=== PATIENT | female | born 1970 | race Caucasian/White ===

== ENCOUNTER 2016-10-18 11:54 | Emergency (ER) | payer BC ==
[~2016-10-18] VITALS: Ht 165.1 cm; Wt 87.9 kg
[~2016-10-18 11:54] MED LIST: ALBUAER2 INH; IBUP-1427 PO; KLN5X PO; VENL100T2 PO
[2016-10-18 12:00] VITALS: TEMP 36.6; Ht 165.1 cm; Wt 87.9 kg
[2016-10-18] MEDS ORDERED: VNTHFA/IN INH (12:12)
[2016-10-18] MEDS ORDERED: MoRPHine SULFATE 4 MG/ML 1 ML CARP\\VIAL IV STA ×2 (12:13→13:30)
[2016-10-18] MEDS ORDERED: ONDANSETRON INJ 2 MG/ML 2 ML VIAL IV STA (12:13)
[2016-10-18] MEDS ORDERED: SODIUM CHLORIDE 0.9% 1000ML 1,000 ML IV STA (12:13)
--- NOTE | 2016-10-18 12:26 | EMERGENCY ROOM VISIT NOTE ---
History First contact with patient: 12:04 Chief Complaint: ABDOMINAL PAIN Stated Complaint: ABDOMINAL PAIN Nursing Triage Summary: RLQ abd pain with nausea, started last evening. History of Present Illness The patient is a 46 year old female who presents to the Emergency Room with complaints of abdominal pain. The patient states that her pain started last night. She states that she was walking and may have felt a pulling sensation in the lower abdomen. She states the pain has persisted and worsened since then. She rates her discomfort an 8/10. She states she thought she felt a lump in her abdomen. She denies any fever. She denies any earache, sore throat , cough. She denies any pain in her chest or trouble breathing. She denies any vomiting. She denies any urinary symptoms. The patient has had hysterectomy and oophorectomy in the past. Review of Systems A 10 system review of systems was completed with positives and pertinent negatives listed in the HPI. Past Medical/Surgical History Medical Problems: (1) Asthma (2) Kidney stone (3) Migraine (4) Parathyroid tumor Surgical Problems: (1) H/O: hysterectomy Anxiety Family History Kidney disease or stones Social History Smoking Status: Never Smoker Alcohol Use: none Marital Status: Housing Status: lives with family Occupation Status: employed Current/Historical Medications Scheduled Albuterol Hfa (Ventolin Hfa), 2 PUFFS INH QID Ciprofloxacin Hcl (Cipro), 500 MG PO BID Metronidazole (Flagyl), 500 MG PO TID Ondasetron Odt (Zofran Odt), 4 MG SL Q6H Scheduled PRN Clonazepam (Clonazepam), 0.5 MG PO BID PRN for Panic Attack Hydrocodone/Acetaminophen 5MG/325MG ([place] 5MG/325MG), 1-2 TABLET PO Q4H PRN for Pain Venlafaxine Hcl (Effexor), 100 MG PO BID PRN for depression Allergies Coded Allergies: Metoclopramide (Verified Adverse Reaction, Mild, PT BECOMES VERY NERVOUS, 04/28/16) Physical Exam Vital Signs Date Time Temp Pulse Resp B/P Pulse Ox O2 Delivery O2 Flow Rate FiO2 10/18/16 15:29 86 18 109/80 96 10/18/16 13:36 115 18 113/74 97 Room Air 10/18/16 12:00 36.6 97 18 117/71 99 Room Air Physical Exam VITALS: Vitals are noted on the nurse's note and reviewed by myself. Vital signs stable. The patient is afebrile. She is not tachycardic, tachypneic or hypoxic. GENERAL: This is a 46-year-old female, in no acute distress, nondiaphoretic, well-developed well-nourished. SKIN: The skin was without rashes, erythema, edema, or bruising. There is no tenting of the skin. Capillary reflex less than 2 seconds. HEAD: Normocephalic atraumatic. EARS: The external ears are normal in appearance. EYES: Pupils equal round and reactive to light and accommodation. Conjunctivae without injection, sclerae without icterus. Extraocular movements intact. NOSE: Patent, turbinates without inflammation or discharge. No sinus tenderness. MOUTH: Mucous membranes moist. Tonsils are not enlarged. Pharynx without erythema or exudate. Uvula midline. Airway patent. Tongue does not deviate. NECK: Supple without nuchal rigidity. No JVD. HEART: Regular rate and rhythm without murmurs gallops or rubs. LUNGS: Clear to auscultation bilaterally without wheezes, rales or rhonchi. No retractions or accessory muscle use. ABDOMEN: Positive bowel sounds x 4. Soft, moderate lower abdominal tenderness, marked right lower quadrant tenderness, without masses or organomegaly. There are no palpable abnormalities on exam. MUSCULOSKELETAL: No muscle atrophy, erythema, or edema noted. Full range of motion in all extremities. Normal gait. Strength 5/5 throughout. NEURO: Patient was alert and oriented to person place and time. No focal neurological deficits. Medical Decision & Procedures ER Provider Diagnostic Interpretation: [~ rep ct add3]] CT SCAN OF THE ABDOMEN AND PELVIS WITH IV CONTRAST CLINICAL HISTORY: Right lower quadrant abdominal pain. COMPARISON STUDY: Abdominal CT dated 01/08/2014. TECHNIQUE: Following the IV administration of 119 cc of Optiray 320, CT scan of the abdomen and pelvis is performed from the lung bases to the proximal femora. Images are reviewed in the axial, sagittal, and coronal planes. IV contrast was administered without complication. Automated dose control exposure was utilized. CT DOSE: 579.77 mGy.cm FINDINGS: Lung bases: The heart is top normal in size and without pericardial effusion. The lung bases are clear. Liver: The contrast-enhanced liver is enlarged, measuring 19 cm in length. The liver demonstrates diffusely diminished attenuation consistent with hepatic steatosis. There is no intrahepatic biliary ductal dilatation. The hepatic veins and portal veins are patent. Gallbladder: Unremarkable. Spleen: Normal in size and attenuation. Pancreas: Unremarkable. Adrenal glands: Unremarkable. Kidneys: The contrast enhanced kidneys are normal in size and without hydronephrosis. The kidneys enhance symmetrically. Scattered subcentimeter cortical hypodensities likely represent cysts but are too small for definitive characterization. There is an indeterminant 7 mm lesion in the interpolar left kidney which appears to demonstrate contrast enhancement. This is best seen on image #128. Abdominal vasculature: The abdominal aorta is normal in course and caliber. Bowel: The small bowel and colon are normal in course and caliber. There is moderate colonic fecal retention. There is inflammation and trace fluid seen adjacent to the ascending colon in the right lower quadrant on axial image #252. There is no associated colonic wall thickening or diverticular disease in the right colon. This process is remote from the appendix which is well-visualized and normal. Peritoneum: There is no intraperitoneal free air or abdominal ascites. There is a small fat-containing umbilical hernia. Lymphadenopathy: None. Pelvic viscera: The bladder is normal in appearance. The uterus is surgically absent. No adnexal lesion is seen. Skeletal structures: No lytic or blastic lesions are seen. A large hemangioma is noted in the body of T12. IMPRESSION: 1. There is a mild inflammatory process identified adjacent to the ascending colon in the right lower quadrant as detailed above. There is no associated colonic wall thickening or regional diverticulitis is identified. The appearance suggests epiploic appendagitis or possibly an omental infarct. Diverticulitis of the right colon is considered less likely. This process is remote from the appendix which is normal. 2. Moderate colonic fecal retention. 3. Hepatomegaly and hepatic steatosis. 4. There is a 7 mm indeterminant lesion in the interpolar left kidney which appears to demonstrate postcontrast enhancement. This is difficult to assess due to small size. Follow-up with a nonemergent contrast-enhanced renal protocol MRI is recommended for further assessment. 5. Additional findings as above. Laboratory Results 10/18/16 12:25 Red Blood Count 4.57, Mean Corpuscular Volume 92.8, Mean Corpuscular Hemoglobin 30.6, Mean Corpuscular Hemoglobin Concent 33.0, Mean Platelet Volume 9.6, Neutrophils (%) (Auto) 63.6, Lymphocytes (%) (Auto) 25.0, Monocytes (%) (Auto) 8.4, Eosinophils (%) (Auto) 2.2, Basophils (%) (Auto) 0.6, Neutrophils # (Auto) 6.23, Lymphocytes # (Auto) 2.45, Monocytes # (Auto) 0.82, Eosinophils # (Auto) 0.22, Basophils # (Auto) 0.06 10/18/16 12:25 Test 10/18/16 12:20 10/18/16 12:25 Urine Color YELLOW Urine Appearance CLEAR (CLEAR) Urine pH 8.5 (4.5-7.5) Urine Specific Ashley 1.016 (1.000-1.030) Urine Protein NEG (NEG) Urine Glucose (UA) NEG (NEG) Urine Ketones NEG (NEG) Urine Occult Blood NEG (NEG) Urine Nitrite NEG (NEG) Urine Bilirubin NEG (NEG) Urine Urobilinogen NEG (NEG) Urine Leukocyte Esterase SMALL (NEG) Urine WBC (Auto) 10-30 /hpf (0-5) Urine RBC (Auto) 5-10 /hpf (0-4) Urine Hyaline Casts (Auto) 1-5 /lpf (0-5) Urine Epithelial Cells (Auto) 20-30 /lpf (0-5) Urine Bacteria (Auto) NEG (NEG) White Blood Count 9.80 K/uL (4.8-10.8) Red Blood Count 4.57 M/uL (4.2-5.4) Hemoglobin 14.0 g/dL (12.0-16.0) Hematocrit 42.4 % (37-47) Mean Corpuscular Volume 92.8 fL (80-100) Mean Corpuscular Hemoglobin 30.6 pg (25-34) Mean Corpuscular Hemoglobin Concent 33.0 g/dl (32-36) Platelet Count 314 K/uL (130-400) Mean Platelet Volume 9.6 fL (7.4-10.4) Neutrophils (%) (Auto) 63.6 % Lymphocytes (%) (Auto) 25.0 % Monocytes (%) (Auto) 8.4 % Eosinophils (%) (Auto) 2.2 % Basophils (%) (Auto) 0.6 % Neutrophils # (Auto) 6.23 K/uL (1.4-6.5) Lymphocytes # (Auto) 2.45 K/uL (1.2-3.4) Monocytes # (Auto) 0.82 K/uL (0.11-0.59) Eosinophils # (Auto) 0.22 K/uL (0-0.5) Basophils # (Auto) 0.06 K/uL (0-0.2) RDW Standard Deviation 43.2 fL (36.4-46.3) RDW Coefficient of Variation 12.7 % (11.5-14.5) Immature Granulocyte % (Auto) 0.2 % Immature Granulocyte # (Auto) 0.02 K/uL (0.00-0.02) Anion Gap 5.0 mmol/L (3-11) Est Creatinine Clear Calc Drug Dose 94.7 ml/min Estimated GFR () 99.4 Estimated GFR (Non- 85.8 BUN/Creatinine Ratio 8.5 (10-20) Calcium Level 9.0 mg/dl (8.5-10.1) Total Bilirubin 0.4 mg/dl (0.2-1) Aspartate Amino Transf (AST/SGOT) 22 U/L (15-37) Alanine Aminotransferase (ALT/SGPT) 22 U/L (12-78) Alkaline Phosphatase 133 U/L (45-117) Total Protein 7.8 gm/dl (6.4-8.2) Albumin 4.1 gm/dl (3.4-5.0) Globulin 3.7 gm/dl (2.5-4.0) Albumin/Globulin Ratio 1.1 (0.9-2) Lipase 122 U/L (73-393) Medications Administered Medications (Trade) Dose Ordered Sig/Bibi Route Start Time Stop Time Status Last Admin Dose Admin Sodium Chloride (Nss 1000ml) 1,000 ml @ 999 mls/hr Q1H1M STAT IV 10/18/16 12:13 10/18/16 13:13 DC 10/18/16 12:30 999 MLS/HR Ondansetron HCl (Zofran Inj) 4 mg NOW STAT IV 10/18/16 12:13 10/18/16 12:16 DC 10/18/16 12:30 4 MG Morphine Sulfate (MoRPHine SULFATE INJ) 4 mg NOW STAT IV 10/18/16 12:13 10/18/16 12:17 DC 10/18/16 12:31 4 MG Morphine Sulfate (MoRPHine SULFATE INJ) 4 mg NOW STAT IV 10/18/16 13:30 10/18/16 13:31 DC 10/18/16 13:30 4 MG Hydromorphone HCl (Dilaudid Inj) 1 mg NOW STAT IV 10/18/16 14:13 10/18/16 14:15 DC 10/18/16 14:54 1 MG Procedure The patient was monitored on a electrotype caster. They maintained a normal sinus rhythm without ectopy. ED Course The patient was seen and examined. Previous visits were reviewed. The patient does not have a fever or leukocytosis. She does not have any significant electrolyte abnormalities. Lipase is not elevated. Urinalysis suggests contamination and a culture is pending. CT scan of the abdomen and pelvis was obtained as above There is question of epiploic appendagitis. Right-sided diverticulitis is considered less likely. There is also a renal lesion as above. The patient was advised of this and follow with her family doctor for outpatient imaging studies. The patient was hydrated with normal saline She was given 4 mg IV Zofran and 4 mg IV morphine with no significant improvement in her pain She was given additional 4 mg IV Zofran but her pain returned She was then given 1 mg IV Dilaudid The patient appears to have epiploic appendagitis but right-sided diverticulitis is considered less likely on imaging. The patient will be covered for diverticulitis with Cipro and Flagyl. She'll be given a prescription for Zofran and [place]. She should return with any worsening symptoms. Otherwise, she should follow-up with her family doctor in 2-3 days. The case was discussed with Dr. Peterson who agrees with the assessment and she knew plan. Medical Decision DIFFERENTIAL DIAGNOSIS: Hepatitis, cholecystitis, cholangitis, biliary colic, pancreatitis, pneumonia, subdiaphragmatic abscess, appendicitis, inguinal hernia , nephrolithiasis, inflammatory bowel disease, mesenteric adenitis, peptic ulcer disease, GERD, gastritis, pancreatitis, gastroenteritis, bowel obstruction , splenic infarct, diverticulitis, mesenteric ischemia, metabolic, peritonitis , among others. [place] Drug Monitoring Program Search Results: patient reviewed within database, no issues identified Impression Primary Impression: Epiploic appendagitis Departure Information Dispostion Home / Self-Care Condition GOOD Prescriptions Ondasetron Odt (ZOFRAN ODT) 4 Mg Tab 4 MG SL Q6H for Nausea, #10 TAB Prov: Beba Garcia PA-C 10/18/16 Hydrocodone/Acetaminophen 5MG/325MG ([place] 5MG/325MG) Tab 1-2 TABLET PO Q4H Y for Pain, #20 TAB For Initial Treatment Prov: Beba Garcia PA-C 10/18/16 Ciprofloxacin Hcl (CIPRO) 500 Mg Tab 500 MG PO BID for 7 Days, #14 TAB Prov: Beba Garcia PA-C 10/18/16 Metronidazole (Flagyl) 500 Mg Tab 500 MG PO TID for 7 Days, #21 TAB Prov: Beba Garcia PA-C 10/18/16 Referrals Trinidad Key D.O. (PCP) Patient Instructions [facility] Additional Instructions Cipro and Flagyl as prescribed, until finished to cover for possible right- sided diverticulitis. Do not drink alcohol while taking Flagyl as it may cause projectile vomiting. Zofran as prescribed, as needed for nausea and vomiting [place] 1-2 tablet every 6 hours if needed for worse pain. Do not drink or drive while taking [place] and do not take with Tylenol. Return to the emergency department for further evaluation and management if symptoms persist or worsen over the next 24-48 hours Otherwise, follow up with your family doctor. Call them for a follow-up appointment. There is possible cyst in your kidney and a lesion in the left kidney measuring approximately 7 mm. A nonemergent outpatient renal MRI is recommended and can be ordered by your family doctor.
[2016-10-18 12:38] LABS: BASO % 0.6 %; BASO ABS # 0.06 K/uL (0-0.2); COMPLETE YES; EOS % 2.2 %; HEMATOCRIT 42.4 % (37-47); IG% 0.2 %; LYMPH ABS # 2.45 K/uL (1.2-3.4); MEAN CELL VOLUME 92.8 fL (80-100); MEAN CORPUSCULAR HEMOGLOBIN 30.6 pg (25-34); MEAN PLATELET VOLUME 9.6 fL (7.4-10.4); MONO % 8.4 %; NEUT % 63.6 %; PLATELET COUNT 314 K/uL (130-400); RED BLOOD COUNT 4.57 M/uL (4.2-5.4)
[2016-10-18 12:48] LABS: URINE APPEARANCE CLEAR (CLEAR); URINE BILIRUBIN NEG (NEG); URINE COLOR YELLOW; URINE EPITHELIAL CELL AUTO 20-30 /lpf (0-5); URINE NITRITE NEG (NEG); URINE PH 8.5 (4.5-7.5); URINE SPECIFIC GRAVITY 1.016 (1.000-1.030); UROBILINOGEN NEG (NEG); ZZUR CULT IF INDIC CLEAN CATCH YES
[2016-10-18 12:52] LABS: MANUAL MICROSCOPIC REQUIRED? NO; REVIEW REQ? NO
[2016-10-18 12:58] LABS: ALB/GLOB RATIO 1.1 (0.9-2); BUN/CREATININE RATIO 8.5 (10-20); CREATININE 0.83 mg/dl (0.60-1.20)
[2016-10-18] MEDS ORDERED: OPTIRAY 320 IV PRN (13:30)
--- NOTE | 2016-10-18 13:45 | DIAGNOSTIC IMAGING REPORT ---
CT SCAN OF THE ABDOMEN AND PELVIS WITH IV CONTRAST CLINICAL HISTORY: Right lower quadrant abdominal pain. COMPARISON STUDY: Abdominal CT dated 01/08/2014. TECHNIQUE: Following the IV administration of 119 cc of Optiray 320, CT scan of the abdomen and pelvis is performed from the lung bases to the proximal femora. Images are reviewed in the axial, sagittal, and coronal planes. IV contrast was administered without complication. Automated dose control exposure was utilized. CT DOSE: 579.77 mGy.cm FINDINGS: Lung bases: The heart is top normal in size and without pericardial effusion. The lung bases are clear. Liver: The contrast-enhanced liver is enlarged, measuring 19 cm in length. The liver demonstrates diffusely diminished attenuation consistent with hepatic steatosis. There is no intrahepatic biliary ductal dilatation. The hepatic veins and portal veins are patent. Gallbladder: Unremarkable. Spleen: Normal in size and attenuation. Pancreas: Unremarkable. Adrenal glands: Unremarkable. Kidneys: The contrast enhanced kidneys are normal in size and without hydronephrosis. The kidneys enhance symmetrically. Scattered subcentimeter cortical hypodensities likely represent cysts but are too small for definitive characterization. There is an indeterminant 7 mm lesion in the interpolar left kidney which appears to demonstrate contrast enhancement. This is best seen on image #128. Abdominal vasculature: The abdominal aorta is normal in course and caliber. Bowel: The small bowel and colon are normal in course and caliber. There is moderate colonic fecal retention. There is inflammation and trace fluid seen adjacent to the ascending colon in the right lower quadrant on axial image #252. There is no associated colonic wall thickening or diverticular disease in the right colon. This process is remote from the appendix which is well-visualized and normal. Peritoneum: There is no intraperitoneal free air or abdominal ascites. There is a small fat-containing umbilical hernia. Lymphadenopathy: None. Pelvic viscera: The bladder is normal in appearance. The uterus is surgically absent. No adnexal lesion is seen. Skeletal structures: No lytic or blastic lesions are seen. A large hemangioma is noted in the body of T12. IMPRESSION: 1. There is a mild inflammatory process identified adjacent to the ascending colon in the right lower quadrant as detailed above. There is no associated colonic wall thickening or regional diverticulitis is identified. The appearance suggests epiploic appendagitis or possibly an omental infarct. Diverticulitis of the right colon is considered less likely. This process is remote from the appendix which is normal. 2. Moderate colonic fecal retention. 3. Hepatomegaly and hepatic steatosis. 4. There is a 7 mm indeterminant lesion in the interpolar left kidney which appears to demonstrate postcontrast enhancement. This is difficult to assess due to small size. Follow-up with a nonemergent contrast-enhanced renal protocol MRI is recommended for further assessment. 5. Additional findings as above. Electronically signed by: Pedro Monteiro M.D. 10/18/2016 1:44 PM Dictated Date/Time: 10/18/2016 1:28 PM
[2016-10-18] MEDS ORDERED: HYDROmorphone INJ 1 MG/ML SYR IV STA (14:13)
[2016-10-18] MEDS ORDERED: CIPR-255 PO (14:21)
[2016-10-18] MEDS ORDERED: HYDR-5688 PO (14:21)
[2016-10-18] MEDS ORDERED: ONDA4TAB10 SL (14:21)
[2016-10-18] MEDS ORDERED: METR-163 PO (14:21)
[2016-10-18 15:29] VITALS: BP 109/80; PULSE 86; O2SAT 96
[2016-10-24] MEDS ORDERED: MRLP17 PO (08:31)
[2016-10-24] MEDS ORDERED: ACET-749 PO (08:31)
== END 2016-10-18 15:31 | disposition home or self-care (01) ==
LOC: C.EDB 11:56
DX: K63.89 Other specified diseases of intestine (principal); Q43.8 Other specified congenital malformations of intestine; Z90.710 Acquired absence of both cervix and uterus; J45.909 Unspecified asthma, uncomplicated; Z87.442 Personal history of urinary calculi; D44.2 Neoplasm of uncertain behavior of parathyroid gland; Z84.1 Family history of disorders of kidney and ureter

== ENCOUNTER 2016-10-21 19:44 | Inpatient (IN) | payer BC ==
[~2016-10-21] VITALS: Ht 167.6 cm; Wt 89.0 kg
[~2016-10-21 19:44] MED LIST changes: -ALBUAER2 INH; +CIPR-255 PO; +HYDR-5688 PO; -IBUP-1427 PO; +METR-163 PO; +ONDA4TAB10 SL; +VNTHFA/IN INH
[2016-10-21] MEDS ORDERED: SODIUM CHLORIDE 0.9% 1000ML 1,000 ML IV STA (20:24)
[2016-10-21] MEDS ORDERED: HYDROmorphone INJ 1 MG/ML SYR IV STA ×2 (20:24→22:12)
[2016-10-21] MEDS ORDERED: ONDANSETRON INJ 2 MG/ML 2 ML VIAL IV STA ×2 (20:24→23:20)
--- NOTE | 2016-10-21 20:29 | EMERGENCY ROOM VISIT NOTE ---
History Report prepared by Fletcher: Cory Rice Under the Supervision of: Dr. Srikanth Call M.D. First contact with patient: 20:19 Chief Complaint: CHEST PAIN Stated Complaint: PAIN IN CHEST, HARD TO BREATHE, INCREASED SX Nursing Triage Summary: Triage Notes: Patient seen here and states "they told me I had something with fat twisted in my colon". Patient reports right sided abdominal pain that has got worse. Patient also reports feeling nauseous and pain in her chest. Doesn't feel she can move air. History of Present Illness The patient is a 46 year old female who presents to the Emergency Room with complaints of worsening right sided abdominal pain for the past 4 days. She rates her discomfort as a 9/10 and states the pain radiates to her back. The patient also complains of nausea, vomiting, chills, a fever, edema to her fingers, and diaphoresis. She has a history of a hysterectomy and kidney calculi. The patient denies any rashes. She was seen here in the ED 4 days ago for similar pain and was discharged home with epiploic appendagitis and prescribed antibiotics, Zofran and [place] for her pain. She states the [place] has not provided any pain relief. Source of History: patient Onset: past few days Position: abdomen (right sided abdomen) Symptom Intensity: 9/10 Timing: worsening Modifying Factors (Relieving): narcotics ([place]) Associated Symptoms: + abdominal pain, + back pain, + chills, + diaphoresis , + fevers, + nausea, + vomiting, No rash Note: The patient admits to edema of the fingers. Review of Systems See HPI for pertinent positives & negatives. A total of 10 systems reviewed and were otherwise negative. Past Medical & Surgical Medical Problems: (1) Asthma (2) Chest pain (3) Kidney stone (4) Migraine (5) Parathyroid tumor Surgical Problems: (1) H/O: hysterectomy Family History Kidney disease or stones Social History Smoking Status: Never Smoker Alcohol Use: none Drug Use: none Marital Status: Housing Status: lives with family Occupation Status: employed Current/Historical Medications Scheduled Albuterol Hfa (Ventolin Hfa), 2 PUFFS INH QID Ciprofloxacin Hcl (Cipro), 500 MG PO BID Metronidazole (Flagyl), 500 MG PO TID Ondasetron Odt (Zofran Odt), 4 MG SL Q6H Scheduled PRN Clonazepam (Clonazepam), 0.5 MG PO BID PRN for Panic Attack Hydrocodone/Acetaminophen 5MG/325MG ([place] 5MG/325MG), 1-2 TABLET PO Q4H PRN for Pain Venlafaxine Hcl (Effexor), 100 MG PO BID PRN for depression Allergies Coded Allergies: Metoclopramide (Verified Adverse Reaction, Mild, PT BECOMES VERY NERVOUS, 10/21/16) Physical Exam Vital Signs Date Time Temp Pulse Resp B/P Pulse Ox O2 Delivery O2 Flow Rate FiO2 10/21/16 22:54 100 Nasal Cannula 2.0 10/21/16 22:19 83 15 99 10/21/16 22:05 101/77 10/21/16 21:19 77 13 100 10/21/16 21:14 78 15 98 10/21/16 21:01 110/63 10/21/16 20:59 72 10/21/16 20:49 78 18 104/66 99 Room Air 10/21/16 20:47 104/66 10/21/16 20:00 98 Room Air 10/21/16 20:00 98 Room Air 10/21/16 19:49 36.6 86 18 111/67 98 Room Air Physical Exam GENERAL: Patient is anxious appearing and in moderate distress. HEENT: No acute trauma, normocephalic atraumatic, mucous membranes moist, no nasal congestion, no scleral icterus. NECK: No stridor, no adenopathy, no meningismus, trachea is midline. LUNGS: No dyspnea. Clear to auscultation and equal bilaterally. No wheeze, no rhonchi. HEART: Regular rate and rhythm. No murmurs, rubs, gallops appreciated. ABDOMEN: Vague right lower quadrant tenderness to palpation. Abdomen is otherwise soft, bowel sounds positive, no masses appreciated, no peritonitis. BACK: No midline tenderness, no CVA tenderness EXTREMITIES: Normal motion all extremities, no cyanosis, no edema. NEUROLOGIC: Alert and oriented, no acute motor or sensory deficits, no focal weakness, cranial nerves grossly intact. SKIN: No rash, no jaundice, no diaphoresis. Medical Decision & Procedures ER Provider Diagnostic Interpretation: These X-Rays were reviewed and interpreted by myself and the radiologist. CHEST ONE VIEW PORTABLE IMPRESSION: No acute process. Electronically signed by: John Oden M.D. 10/21/2016 9:09 PM ABDOMEN 2 VIEWS IMPRESSION: No evidence for bowel obstruction. Large amount of well-formed stool seen throughout the colon. Electronically signed by: John Oden M.D. 10/21/2016 10:01 PM Laboratory Results 10/21/16 20:00 Red Blood Count 4.67, Mean Corpuscular Volume 91.4, Mean Corpuscular Hemoglobin 30.0, Mean Corpuscular Hemoglobin Concent 32.8, Mean Platelet Volume 9.4, Neutrophils (%) (Auto) 61.1, Lymphocytes (%) (Auto) 27.9, Monocytes (%) (Auto) 8.3, Eosinophils (%) (Auto) 1.8, Basophils (%) (Auto) 0.6, Neutrophils # (Auto) 4.35, Lymphocytes # (Auto) 1.99, Monocytes # (Auto) 0.59, Eosinophils # (Auto) 0.13, Basophils # (Auto) 0.04 10/21/16 20:00 Test 10/21/16 20:00 10/21/16 20:45 White Blood Count 7.12 K/uL (4.8-10.8) Red Blood Count 4.67 M/uL (4.2-5.4) Hemoglobin 14.0 g/dL (12.0-16.0) Hematocrit 42.7 % (37-47) Mean Corpuscular Volume 91.4 fL (80-100) Mean Corpuscular Hemoglobin 30.0 pg (25-34) Mean Corpuscular Hemoglobin Concent 32.8 g/dl (32-36) Platelet Count 314 K/uL (130-400) Mean Platelet Volume 9.4 fL (7.4-10.4) Neutrophils (%) (Auto) 61.1 % Lymphocytes (%) (Auto) 27.9 % Monocytes (%) (Auto) 8.3 % Eosinophils (%) (Auto) 1.8 % Basophils (%) (Auto) 0.6 % Neutrophils # (Auto) 4.35 K/uL (1.4-6.5) Lymphocytes # (Auto) 1.99 K/uL (1.2-3.4) Monocytes # (Auto) 0.59 K/uL (0.11-0.59) Eosinophils # (Auto) 0.13 K/uL (0-0.5) Basophils # (Auto) 0.04 K/uL (0-0.2) RDW Standard Deviation 42.3 fL (36.4-46.3) RDW Coefficient of Variation 12.7 % (11.5-14.5) Immature Granulocyte % (Auto) 0.3 % Immature Granulocyte # (Auto) 0.02 K/uL (0.00-0.02) Activated Partial Thromboplast Time 24.9 SECONDS (21.0-31.0) Partial Thromboplastin Ratio 1.0 Anion Gap 8.0 mmol/L (3-11) Est Creatinine Clear Calc Drug Dose 80.1 ml/min Estimated GFR () 79.4 Estimated GFR (Non- 68.5 BUN/Creatinine Ratio 7.7 (10-20) Calcium Level 9.0 mg/dl (8.5-10.1) Magnesium Level 2.0 mg/dl (1.8-2.4) Total Bilirubin 0.3 mg/dl (0.2-1) Direct Bilirubin < 0.1 mg/dl (0-0.2) Aspartate Amino Transf (AST/SGOT) 19 U/L (15-37) Alanine Aminotransferase (ALT/SGPT) 23 U/L (12-78) Alkaline Phosphatase 117 U/L (45-117) Troponin I < 0.015 ng/ml (0-0.045) C-Reactive Protein 0.33 mg/dl (0-0.29) Total Protein 7.2 gm/dl (6.4-8.2) Albumin 3.6 gm/dl (3.4-5.0) Lipase 110 U/L (73-393) Urine Color YELLOW Urine Appearance CLEAR (CLEAR) Urine pH >= 9.0 (4.5-7.5) Urine Specific [place] 1.016 (1.000-1.030) Urine Protein NEG (NEG) Urine Glucose (UA) NEG (NEG) Urine Ketones NEG (NEG) Urine Occult Blood NEG (NEG) Urine Nitrite NEG (NEG) Urine Bilirubin NEG (NEG) Urine Urobilinogen NEG (NEG) Urine Leukocyte Esterase NEG (NEG) Urine WBC (Auto) 1-5 /hpf (0-5) Urine RBC (Auto) 0-4 /hpf (0-4) Urine Hyaline Casts (Auto) 0 /lpf (0-5) Urine Epithelial Cells (Auto) 5-10 /lpf (0-5) Urine Bacteria (Auto) NEG (NEG) Laboratory results as reviewed by me. Medications Administered Medications (Trade) Dose Ordered Sig/Bibi Route Start Time Stop Time Status Last Admin Dose Admin Hydromorphone HCl (Dilaudid Inj) 1 mg NOW STAT IV 10/21/16 20:24 10/21/16 20:26 DC 10/21/16 20:44 1 MG Ondansetron HCl 4 mg 4 mg NOW STAT IV 10/21/16 20:24 10/21/16 20:26 DC 10/21/16 20:43 4 MG Sodium Chloride (Nss 1000ml) 1,000 ml @ 999 mls/hr Q1H1M STAT IV 10/21/16 20:24 10/21/16 21:24 DC 10/21/16 20:42 999 MLS/HR Lorazepam (Ativan Inj) 1 mg NOW STAT IV 10/21/16 21:28 10/21/16 21:30 DC 10/21/16 21:58 1 MG Hydromorphone HCl (Dilaudid Inj) 0.5 mg NOW STAT IV 10/21/16 21:28 10/21/16 21:30 DC 10/21/16 22:02 0.5 MG Hydromorphone HCl (Dilaudid Inj) 1 mg NOW STAT IV 10/21/16 22:12 10/21/16 22:14 DC 10/21/16 23:18 1 MG Ondansetron HCl (Zofran Inj) 4 mg NOW STAT IV 10/21/16 23:20 10/21/16 23:21 DC 10/21/16 23:27 4 MG ECG Indication: abdominal pain Rate (beats per minute): 74 Rhythm: normal sinus Findings: no acute ischemic change, no ectopy ED Course 2009: The patient was evaluated in room B11B. A complete history and physical exam was performed. 2023: Sodium Chloride 1000 ml @ 999 mls/hr IV, Zofran Injection 4 mg IV, Dilaudid Inject 1 mg IV. 2127: The patient is feeling better, but wants more pain medication and medication for anxiety. She notes she does not think she has had a bowel movement in the last few days, but she can not remember. 2128: Dilaudid Injection 0.5 mg IV, Ativan Injection 1 mg IV. 2130: I have ordered a series of abdominal x-rays. 2204: I reevaluated the patient. She states her pain is increasing and she does not feel comfortable going home. I will contact the hospital medicine team. 2211: Dilaudid 1 mg IV. 2218: I discussed the patients case with Teofilo Rodarte [facility]. The patient will be further evaluated. 2320: Nursing informed me the patient would like more medicine for nausea. I will put in orders. 232: Zofran Injection 4 mg IV. Medical Decision Differential: Appendicitis, , MSK, Diverticulitis, UTI, Renal Colic, Bowel Obstruction, Aortic Pathology, amongst other pathologies entertained. 46 yr old female arrives with complaint of RLQ abdominal pain. Recent diagnosis of epiploic appendagitis vs possible right sided diverticulitis. Exam without peritonitis. She reports continued pain despite multiple rounds narcotics. Imaging without evidence of obstruction. Labs without evidence of sepsis nor really any acute inflammation. She is stable though states she can not go home. I have consulted hospitalist for further evaluation. Consults Time Called: 2216 Consulting Physician: Teofilo Rodarte [facility] Returned Call: 2218 I discussed the patients case [facility] The patient will be further evaluated. Impression Primary Impression: Intractable pain Scribe Attestation The scribe's documentation has been prepared under my direction and personally reviewed by me in its entirety. I confirm that the note above accurately reflects all work, treatment, procedures, and medical decision making performed by me. Departure Information Dispostion Being Evaluated By Hospitalist Referrals Trinidad Key D.O. (PCP) Patient Instructions My [facility]
[2016-10-21 20:31] LABS: BASO % 0.6 %; BASO ABS # 0.04 K/uL (0-0.2); COMPLETE YES; EOS % 1.8 %; HEMATOCRIT 42.7 % (37-47); IG% 0.3 %; LYMPH % 27.9 %; LYMPH ABS # 1.99 K/uL (1.2-3.4); MEAN CELL VOLUME 91.4 fL (80-100); MEAN CORPUSCULAR HGB CONC 32.8 g/dl (32-36); MEAN PLATELET VOLUME 9.4 fL (7.4-10.4); MONO % 8.3 %; NEUT % 61.1 %; PLATELET COUNT 314 K/uL (130-400); RED BLOOD COUNT 4.67 M/uL (4.2-5.4); WHITE BLOOD COUNT 7.12 K/uL (4.8-10.8)
[2016-10-21 20:39] LABS: ALT/SGPT 23 U/L (12-78); AST/SGOT 19 U/L (15-37); BLOOD UREA NITROGEN 8 mg/dl (7-18); BUN/CREATININE RATIO 7.7 (10-20); CARBON DIOXIDE 27 mmol/L (21-32); CHLORIDE 109 mmol/L (98-107); GLUCOSE 96 mg/dl (70-99); POTASSIUM 4.3 mmol/L (3.5-5.1); SODIUM 144 mmol/L (136-145)
[2016-10-21 20:44] LABS: ALKALINE PHOSPHATASE 117 U/L (45-117); C-REACTIVE PROTEIN 0.33 mg/dl (0-0.29)
[2016-10-21 21:01] LABS: URINE APPEARANCE CLEAR (CLEAR); URINE BILIRUBIN NEG (NEG); URINE COLOR YELLOW; URINE NITRITE NEG (NEG); URINE PH >= 9.0 (4.5-7.5); URINE SPECIFIC GRAVITY 1.016 (1.000-1.030); UROBILINOGEN NEG (NEG); ZZUR CULT IF INDIC CLEAN CATCH NO
[2016-10-21 21:02] LABS: MANUAL MICROSCOPIC REQUIRED? NO; REVIEW REQ? NO
--- NOTE | 2016-10-21 21:10 | DIAGNOSTIC IMAGING REPORT ---
CHEST ONE VIEW PORTABLE HISTORY: Atypical chest pain. Short of breath. COMPARISON: Chest 04/28/2016. FINDINGS: The lungs are clear. Cardiac silhouette is normal in size. No pleural effusions. No pneumothorax. IMPRESSION: No acute process. Electronically signed by: John Oden M.D. 10/21/2016 9:09 PM Dictated Date/Time: 10/21/2016 9:06 PM
[2016-10-21] MEDS ORDERED: LORAZEPAM 2 MG/ML 1 ML VIAL IV STA (21:28)
[2016-10-21] MEDS ORDERED: HYDROmorphone INJ 0.5 MG/0.5 ML SYR IV STA (21:28)
--- NOTE | 2016-10-21 22:03 | DIAGNOSTIC IMAGING REPORT ---
ABDOMEN 2 VIEWS HISTORY: abdominal pain, no BM in 2 days. Already had CXR COMPARISON: Abdomen and pelvis CT 10/18/2016. FINDINGS: Large amount well-formed stool seen throughout the colon. No dilated loops of small bowel to suggest an obstruction. No renal calculi. No pneumoperitoneum. No pneumatosis. The lung bases are clear. IMPRESSION: No evidence for bowel obstruction. Large amount of well-formed stool seen throughout the colon. Electronically signed by: John Oden M.D. 10/21/2016 10:01 PM Dictated Date/Time: 10/21/2016 10:00 PM
[2016-10-21] MEDS ORDERED: SODIUM CHLORIDE 0.45% 1000ML 1,000 ML IV SCH (23:45)
[2016-10-22] VITALS (9 sets, daily range): BP systolic 93–106; BP diastolic 61–73; PULSE 72–93; TEMP 36.3–36.9; O2SAT 92–100; Ht 167.6 cm; Wt 89.0 kg
[2016-10-22] MEDS ORDERED: OPTIRAY 320 IV PRN
[2016-10-22] MEDS ORDERED: HYDROCODONE/ACETAMOPHEN 5/325MG TAB PO PRN
[2016-10-22] MEDS ORDERED: CLONAZEPAM 0.5 MG TAB PO PRN
[2016-10-22] MEDS ORDERED: PROMETHAZINE HCL INJ 12.5 MG in SODIUM CHLORIDE 0.9% 50ML 50 ML IV PRN ×2
[2016-10-22] MEDS ORDERED: ALBUT/IPRATROP 3MG/0.5MG NEB 3 ML VIAL INH PRN
[2016-10-22] MEDS ORDERED: DOCUSATE SODIUM/SENNA 50/8.6MG TAB PO ONE (01:00)
[2016-10-22] MEDS ORDERED: POLYETHYLENE (MIRALAX) 17 GM PACK PO ONE (01:00)
[2016-10-22] MEDS ORDERED: SODIUM CHLORIDE 0.45% 1000ML 1,000 ML IV ONE (01:15)
[2016-10-22] MEDS: ONDANSETRON INJ 2 MG/ML 2 ML VIAL IV PRN ×2 (01:29→23:12)
[2016-10-22] MEDS: KETOROLAC TROMETHAMINE 30 MG/ML VIAL IV PRN ×2 (01:29→07:32)
[2016-10-22] MEDS ORDERED: MoRPHine SULFATE 2 MG/ML CARP IV PRN (01:30)
[2016-10-22] MEDS ORDERED: IV FLUIDS COMPLETED PRN (02:15)
--- NOTE | 2016-10-22 06:50 | HISTORY & PHYSICAL EXAMINATION ---
DATE OF ADMISSION: 10/21/2016 PRIMARY CARE DOCTOR: Dr. Key. CHIEF COMPLAINT: Right-sided abdominal pain. HISTORY OF PRESENT ILLNESS: Hx obtained from px and records. Medical history is significant for asthma, migraine, mood disorder, hx presumptive PE during sp anticoagulation (2002). fibromyalgia as per records. Recent confinement last July 2013 for atypical chest pain, normal stress echo. Last 3 days, patient noted right-sided abdominal pain with some nausea, poor bowel movement; achy, different from kidney stones; some chills, no fever. Seen at the Emergency Room. CAT scan showed moderate colonic fecal retention, hepatomegaly, hepatic steatosis, right lower quadrant inflammation, epiploic appendagitis versus omental infarct , right colon diverticulitis less likely. Patient discharged on Cipro, Flagyl, and Vicodin. Worsening pain at home. Patient also had right-sided chest pain, could not catch her breath. No cough. Intractable pain at the Emergency Room. MEDICAL HISTORY: As above. SURGERIES: Thyroid gland biopsy, gynecologic procedures, total abdominal hysterectomy, bilateral salpingo oophorectomy. HOME MEDICATIONS: Include Ventolin, clonazepam, Effexor, albuterol, Cipro, Flagyl. ALLERGIES: REGLAN. FAMILY HISTORY: Blood clots. PERSONAL AND SOCIAL HISTORY: Nonsmoker, no chronic intake of alcoholic beverages. middle school band teacher. REVIEW OF SYSTEMS: As per HPI, all other ROS negative. PHYSICAL EXAMINATION: VITAL SIGNS: Blood pressure noted to be 101/72, pulse rate 90, RR 13, temp 37 sats 100% on room air. GENERAL: Noted to be anxious, obese, in no respiratory distress. SKIN: Normal color. HEENT: [place] palpebral conjunctivae. Dry mucosa. NECK: Short neck. CHEST: Decreased breath sounds. No anterior chest wall tenderness. HEART: Regular rate and rhythm. ABDOMEN: Right lower quadrant tenderness. EXTREMITIES: No edema or tenderness. NEUROLOGIC: No gross focality. LABORATORIES: Hemoglobin was noted to be 14, WBC 12, platelets 314. Sodium 144, potassium 4.3, chloride 109, CO2 27, BUN 8, creatinine 1, glucose was noted to be 96. Troponin was 0.015. IMAGING DATA: Chest x-ray showed no acute process. EKG as per my interpretation, rate 75, NSR, no ischemia. ASSESSMENT: 1. Chest pain with shortness of breath poss from anxiety ro recurrent PE hx possible PE during sp presumptive anticoag (2003) 2. Right-sided abdominal pain epiploic appendagitis on CT a few days ago. no response to outpx antibiotic rx and analgesia regimen constipation may be contributory intractable pain. No signs of toxicity. 3. mood disorder. baseline 4. Migraine, stable as per px. 5. Asthma, well controlled. PLAN: Observation PCU. for chest pain. CT chest, PE study repeat CT abdomen and pelvis. RE worsening R abdominal pain NSAID trial laxatives, judicious narcotic use hold outpx Cipro, Flagyl for now Further management pending CT results. Deep venous thrombosis prophylaxis. Lovenox subQ, if no bleed on CT Full code. ADDENDUM: CT chest, initial read : no PE. CT abdomen and pelvis, initial read : epiploic appendagitis. F transfer follow up official CT abdomen and pelvis results in the morning. Consider Surgery consult for epiploic appendagitis if no improvement of symptoms w/ conservative mx. MTDD
[2016-10-22 07:07] LABS: PROTHROMBIN TIME (PATIENT) 10.2 SECONDS (9.0-12.0)
--- NOTE | 2016-10-22 07:10 | DIAGNOSTIC IMAGING REPORT ---
CT OF THE ABDOMEN AND PELVIS WITH CONTRAST CLINICAL HISTORY: Worsening right-sided abdominal pain. COMPARISON STUDY: CT of the abdomen and pelvis October 18, 2016 and abdominal series October 21, 2016. TECHNIQUE: Following IV administration of 91 mL of Optiray-320, axial images of the abdomen and pelvis were obtained from the lung bases to the proximal femurs. Images were reviewed in the axial, sagittal, and coronal planes. IV contrast was administered without complication. CT DOSE: 835.45 mGy.cm FINDINGS: The chest will be reported separately. There may be fatty infiltration of the liver. The caliber of the common bile duct is at the upper limits of normal. There are multiple subcentimeter left renal lesions which are too small to characterize. The spleen, adrenal glands and pancreas are normal. There is no peripancreatic infiltration. There is no evidence for a bowel obstruction. The appendix is normal. Mild infiltration and trace fluid along the lateral aspect of the ascending colon has diminished since exam of October 18, 2016. Skeletal structures are unremarkable. IMPRESSION: 1. Persistent, but improved, minimal infiltration and fluid along the ascending colon since CT of October 18, 2016. This may reflect resolving epiploic appendagitis. No abscess. Normal appendix. No bowel obstruction. 2. Fatty liver. Electronically signed by: Salazar Parker M.D. 10/22/2016 7:09 AM Dictated Date/Time: 10/22/2016 6:59 AM
--- NOTE | 2016-10-22 07:11 | DIAGNOSTIC IMAGING REPORT ---
CT ANGIOGRAM OF THE CHEST CLINICAL HISTORY: Atypical chest pain. COMPARISON STUDY: Chest x-ray dated 10/21/2016. Chest CT dated 07/27/2013. TECHNIQUE: Following the IV administration of 91 cc of Optiray 320, CT angiogram of the chest was performed from the upper abdomen to the thoracic inlet utilizing the pulmonary embolus protocol. Images are reviewed in the axial, sagittal, and coronal planes. 3-D MIPS images are created and assessed. IV contrast was administered without complication. FINDINGS: Thyroid: Imaged portions of the thyroid gland are normal in size and attenuation. Thoracic aorta: The thoracic aorta is normal in caliber and demonstrates standard 3-vessel arch anatomy. No dissection is seen. Pulmonary vasculature: The pulmonary trunk is normal in caliber. There are no filling defects identified in main, lobar, or segmental pulmonary branches to suggest pulmonary embolus. Heart: The heart is normal in size and configuration, and without pericardial effusion. Lungs and pleural spaces: There is biapical scarring. No airspace consolidation or pleural effusion is identified. A 2 mm right middle lobe nodule seen on image #105 is unchanged from 2014 and of doubtful significance. Dependent atelectasis is observed. A calcific granulomas noted in the left lower lobe. The trachea and central airways are clear. Mediastinum: There is no mediastinal lymphadenopathy. Janine: Clear. Axillae: There is no axillary lymphadenopathy. Upper abdomen: There is a tiny hiatal hernia. Partially visualized upper abdominal viscera is otherwise within normal limits. Skeletal structures: No lytic or blastic bony lesions are seen. A hemangioma is noted in the body of T12. IMPRESSION: 1. There is no evidence of pulmonary embolus in the main, lobar, or segmental pulmonary arteries. 2. The lungs are clear. Electronically signed by: Pedro Monteiro M.D. 10/22/2016 7:10 AM Dictated Date/Time: 10/22/2016 7:06 AM
[2016-10-22] MEDS: DOCUSATE SODIUM/SENNA 50/8.6MG TAB PO SCH (07:30)
[2016-10-22] MEDS: VENLAFAXINE HCL 50 MG TAB PO SCH (07:31)
[2016-10-22] MEDS: ENOXAPARIN 40 MG/0.4 ML SYR SC SCH (08:50)
[2016-10-22] MEDS: MoRPHine SULFATE 2 MG/ML CARP IV PRN (08:53)
[2016-10-22] MEDS ORDERED: MILK AND MOLASSES ENEMA PR ONE (10:45)
--- NOTE | 2016-10-22 10:54 | Progress Note ---
Medicine Progress Note Date & Time of Visit: October 22, 2016 at 10:42. Subjective 46 yo F with persistent abdominal pain at home after ER visit on 10/18 revealing epiploic appendigitis. She was not improved on initial therapy. -abdominal pain is improved today -no reports of chest pain or shortness of breath -tolerated some jello only this morning -persistent nausea -reported some vomiting at home but not here -afebrile overnight -pain is RLQ and feels sharp -denies UTI symptoms or hematuria Objective Last 8 Hrs Date Time Temp Pulse Resp B/P Pulse Ox O2 Delivery O2 Flow Rate FiO2 10/22/16 10:16 36.7 72 18 104/70 94 Room Air 10/22/16 09:45 36.7 72 18 94 2.0 10/22/16 08:00 Room Air 10/22/16 07:38 36.9 79 16 93/61 99 Room Air 10/22/16 04:00 Room Air 10/22/16 03:48 36.6 89 17 101/68 99 Room Air Physical Exam: GEN: WNWD, in no acute distress, alert and appropriate HEENT: NC/AT, pupils are equal and round, normal sclerae, MMM CARDIO: reg rate, S1/2 heard without m/g/r LUNGS: CTA bilaterally, no crackles, rales or wheezes, good diaphragmatic excursion ABD: soft, non-tender, non-distended, no rebound or guarding, +BS EXTREMITY: no LE swelling or edema, extremities are warm and well-perfused NEURO: CN 2-12 grossly intact, sensation intact throughout MUSC: moves all extremities equally and with ease. SKIN: warm and dry Laboratory Results: Last 24 Hours Test 10/21/16 20:00 10/21/16 20:45 10/22/16 06:25 White Blood Count 7.12 K/uL Red Blood Count 4.67 M/uL Hemoglobin 14.0 g/dL Hematocrit 42.7 % Mean Corpuscular Volume 91.4 fL Mean Corpuscular Hemoglobin 30.0 pg Mean Corpuscular Hemoglobin Concent 32.8 g/dl Platelet Count 314 K/uL Mean Platelet Volume 9.4 fL Neutrophils (%) (Auto) 61.1 % Lymphocytes (%) (Auto) 27.9 % Monocytes (%) (Auto) 8.3 % Eosinophils (%) (Auto) 1.8 % Basophils (%) (Auto) 0.6 % Neutrophils # (Auto) 4.35 K/uL Lymphocytes # (Auto) 1.99 K/uL Monocytes # (Auto) 0.59 K/uL Eosinophils # (Auto) 0.13 K/uL Basophils # (Auto) 0.04 K/uL RDW Standard Deviation 42.3 fL RDW Coefficient of Variation 12.7 % Immature Granulocyte % (Auto) 0.3 % Immature Granulocyte # (Auto) 0.02 K/uL Activated Partial Thromboplast Time 24.9 SECONDS Partial Thromboplastin Ratio 1.0 Sodium Level 144 mmol/L Potassium Level 4.3 mmol/L Chloride Level 109 mmol/L Carbon Dioxide Level 27 mmol/L Anion Gap 8.0 mmol/L Blood Urea Nitrogen 8 mg/dl Creatinine 1.00 mg/dl Est Creatinine Clear Calc Drug Dose 80.1 ml/min Estimated GFR () 79.4 Estimated GFR (Non- 68.5 BUN/Creatinine Ratio 7.7 Random Glucose 96 mg/dl Calcium Level 9.0 mg/dl Magnesium Level 2.0 mg/dl Total Bilirubin 0.3 mg/dl Direct Bilirubin < 0.1 mg/dl Aspartate Amino Transf (AST/SGOT) 19 U/L Alanine Aminotransferase (ALT/SGPT) 23 U/L Alkaline Phosphatase 117 U/L Troponin I < 0.015 ng/ml C-Reactive Protein 0.33 mg/dl Total Protein 7.2 gm/dl Albumin 3.6 gm/dl Lipase 110 U/L Urine Color YELLOW Urine Appearance CLEAR Urine pH >= 9.0 Urine Specific [place] 1.016 Urine Protein NEG Urine Glucose (UA) NEG Urine Ketones NEG Urine Occult Blood NEG Urine Nitrite NEG Urine Bilirubin NEG Urine Urobilinogen NEG Urine Leukocyte Esterase NEG Urine WBC (Auto) 1-5 /hpf Urine RBC (Auto) 0-4 /hpf Urine Hyaline Casts (Auto) 0 /lpf Urine Epithelial Cells (Auto) 5-10 /lpf Urine Bacteria (Auto) NEG Prothrombin Time 10.2 SECONDS Prothromb Time International Ratio 1.0 Diagnostic Imaging: CT OF THE ABDOMEN AND PELVIS WITH CONTRAST CLINICAL HISTORY: Worsening right-sided abdominal pain. COMPARISON STUDY: CT of the abdomen and pelvis October 18, 2016 and abdominal series October 21, 2016. TECHNIQUE: Following IV administration of 91 mL of Optiray-320, axial images of the abdomen and pelvis were obtained from the lung bases to the proximal femurs. Images were reviewed in the axial, sagittal, and coronal planes. IV contrast was administered without complication. CT DOSE: 835.45 mGy.cm FINDINGS: The chest will be reported separately. There may be fatty infiltration of the liver. The caliber of the common bile duct is at the upper limits of normal. There are multiple subcentimeter left renal lesions which are too small to characterize. The spleen, adrenal glands and pancreas are normal. There is no peripancreatic infiltration. There is no evidence for a bowel obstruction. The appendix is normal. Mild infiltration and trace fluid along the lateral aspect of the ascending colon has diminished since exam of October 18, 2016. Skeletal structures are unremarkable. IMPRESSION: 1. Persistent, but improved, minimal infiltration and fluid along the ascending colon since CT of October 18, 2016. This may reflect resolving epiploic appendagitis. No abscess. Normal appendix. No bowel obstruction. 2. Fatty liver. CT ANGIOGRAM OF THE CHEST CLINICAL HISTORY: Atypical chest pain. COMPARISON STUDY: Chest x-ray dated 10/21/2016. Chest CT dated 07/27/2013. TECHNIQUE: Following the IV administration of 91 cc of Optiray 320, CT angiogram of the chest was performed from the upper abdomen to the thoracic inlet utilizing the pulmonary embolus protocol. Images are reviewed in the axial, sagittal, and coronal planes. 3-D MIPS images are created and assessed. IV contrast was administered without complication. FINDINGS: Thyroid: Imaged portions of the thyroid gland are normal in size and attenuation. Thoracic aorta: The thoracic aorta is normal in caliber and demonstrates standard 3-vessel arch anatomy. No dissection is seen. Pulmonary vasculature: The pulmonary trunk is normal in caliber. There are no filling defects identified in main, lobar, or segmental pulmonary branches to suggest pulmonary embolus. Heart: The heart is normal in size and configuration, and without pericardial effusion. Lungs and pleural spaces: There is biapical scarring. No airspace consolidation or pleural effusion is identified. A 2 mm right middle lobe nodule seen on image #105 is unchanged from 2014 and of doubtful significance. Dependent atelectasis is observed. A calcific granulomas noted in the left lower lobe. The trachea and central airways are clear. Mediastinum: There is no mediastinal lymphadenopathy. Janine: Clear. Axillae: There is no axillary lymphadenopathy. Upper abdomen: There is a tiny hiatal hernia. Partially visualized upper abdominal viscera is otherwise within normal limits. Skeletal structures: No lytic or blastic bony lesions are seen. A hemangioma is noted in the body of T12. IMPRESSION: 1. There is no evidence of pulmonary embolus in the main, lobar, or segmental pulmonary arteries. 2. The lungs are clear. Assessment & Plan 46 yo F with persistent abdominal pain at home after ER visit on 10/18 revealing epiploic appendigitis. She was not improved on initial therapy. 1. Abdominal pain-persistent in RLQ. CT with evidence of resolving epiploic appendagitis. Pt is still requiring pain meds but reports doing better this morning. She was able to tolerate only jello,however, she has been constipated now for 5-6 days. Will order MOM enema and reassess nausea. No peritoneal signs on exam. Stop opioids unless severe as this is contributing to opioid- induced constipation. Scheduled Toradol. 2. Chest pain with shortness of breath-no reports of that this morning. CT PE was negative for PE of infiltrates. 3. Nausea 2/2 inflammatory process as above in conjunction with opioid-induced constipation. Enema now and hold on narcotics unless pain is severe. Advance diet as tolerated. 4. Mood disorder-stable, at baseline, cont home regimen. 5. h/o migraines 6. Asthma-well controlled. No wheezing on exam. Cont Duonebs as needed. DVT proph-Lovenox. Full Code Dispo-cont to monitor on Med/Surg. OK to go home once she is tolerating PO and pain is well managed with PO meds or gone. Maylin Adams DO [facility] Hospitalist Current Inpatient Medications: Current Inpatient Medications Medications (Trade) Dose Ordered Sig/Bibi Route Start Time Stop Time Status Last Admin Dose Admin Ketorolac Tromethamine (Toradol Inj) 30 mg Q6H PRN IV 10/21/16 23:00 10/26/16 22:59 10/22/16 07:32 30 MG Enoxaparin Sodium (Lovenox Inj) 40 mg Q24H SC 10/22/16 09:00 11/21/16 08:59 10/22/16 08:50 40 MG Acetaminophen (Tylenol Tab) 650 mg Q4H PRN PO 10/22/16 00:00 11/21/16 00:00 Clonazepam (Klonopin Tab) 0.5 mg BID PRN PO 10/22/16 00:00 11/21/16 00:00 Acetaminophen/ Hydrocodone Bitart ([place] 5/325 Tab) 1 tab Q4H PRN PO 10/22/16 00:00 11/05/16 00:00 10/22/16 06:37 1 TAB Venlafaxine HCl (effeXOR TAB) 75 mg DAILY PO 10/22/16 09:00 11/21/16 08:59 10/22/16 07:31 75 MG Albuterol/ Ipratropium (Duoneb) 3 ml Q2H PRN INH 10/22/16 00:00 11/21/16 00:00 Ondansetron HCl 4 mg 4 mg Q6H PRN IV 10/22/16 00:00 11/21/16 00:00 10/22/16 01:29 4 MG Promethazine HCl/ Sodium Chloride (Phenergan Inj/ Nss 50ml) 50.5 ml @ 204 mls/hr Q6H PRN IV 10/22/16 00:00 11/21/16 00:00 10/22/16 08:50 204 MLS/HR Senna/Docusate Sodium (Senokot S Tab) 1 tab QAM PO 10/22/16 09:00 11/21/16 08:59 10/22/16 07:30 1 TAB Ioversol 100 ml 100 ml UD PRN IV 10/22/16 00:00 10/26/16 00:00 Sodium Chloride (1/2 Nss 1000ml) 1,000 ml @ 75 mls/hr [id number] ONCE IV 10/22/16 01:15 10/22/16 14:34 10/22/16 01:53 75 MLS/HR Morphine Sulfate (MoRPHine SULFATE INJ) 2 mg Q8H PRN IV 10/22/16 09:30 11/05/16 09:29 10/22/16 08:53 2 MG Miscellaneous (Iv Fluids Completed) 1 ea PRN PRN N/A 10/22/16 02:15 10/22/17 02:14
[2016-10-22] MEDS: KETOROLAC TROMETHAMINE 30 MG/ML VIAL IV. SCH ×3 (14:25→23:35)
[2016-10-22] MEDS: ACETAMINOPHEN 325 MG TAB PO PRN ×2 (19:22→23:15)
[2016-10-23] MEDS: KETOROLAC TROMETHAMINE 30 MG/ML VIAL IV. SCH ×4 (06:00→23:31)
[2016-10-23 07:21] LABS: BASO % 0.9 %; BASO ABS # 0.05 K/uL (0-0.2); COMPLETE YES; EOS % 2.8 %; HEMATOCRIT 40.1 % (37-47); LYMPH % 31.8 %; LYMPH ABS # 1.73 K/uL (1.2-3.4); MEAN CELL VOLUME 92.8 fL (80-100); MEAN CORPUSCULAR HEMOGLOBIN 30.6 pg (25-34); MEAN CORPUSCULAR HGB CONC 32.9 g/dl (32-36); MEAN PLATELET VOLUME 9.4 fL (7.4-10.4); MONO % 9.2 %; NEUT % 55.3 %; PLATELET COUNT 254 K/uL (130-400); RED BLOOD COUNT 4.32 M/uL (4.2-5.4); WHITE BLOOD COUNT 5.44 K/uL (4.8-10.8)
[2016-10-23 07:23] VITALS: BP 106/71; PULSE 69; TEMP 36.5; O2SAT 95
[2016-10-23] MEDS: VENLAFAXINE HCL 50 MG TAB PO SCH ×2 (07:29→07:31)
[2016-10-23] MEDS: ENOXAPARIN 40 MG/0.4 ML SYR SC SCH (07:31)
[2016-10-23] MEDS: DOCUSATE SODIUM/SENNA 50/8.6MG TAB PO SCH (07:31)
[2016-10-23 07:57] LABS: BLOOD UREA NITROGEN 12 mg/dl (7-18); BUN/CREATININE RATIO 13.8 (10-20); CALCIUM 8.6 mg/dl (8.5-10.1); CARBON DIOXIDE 30 mmol/L (21-32); CHLORIDE 109 mmol/L (98-107); CREATININE 0.86 mg/dl (0.60-1.20); GLUCOSE 99 mg/dl (70-99); MAGNESIUM 2.2 mg/dl (1.8-2.4); POTASSIUM 4.5 mmol/L (3.5-5.1); SODIUM 144 mmol/L (136-145)
[2016-10-23 08:00] VITALS: O2SAT 93
[2016-10-23] MEDS: MoRPHine SULFATE 2 MG/ML CARP IV PRN (09:45)
[2016-10-23] MEDS ORDERED: POLYETHYLENE (MIRALAX) 17 GM PACK ONE (10:42)
[2016-10-23] MEDS ORDERED: ACETAMINOPHEN/CODEINE 300/30MG TAB PO PRN ×2 (10:45→20:15)
[2016-10-23] MEDS ORDERED: MILK AND MOLASSES ENEMA PR ONE (11:30)
[2016-10-23] MEDS: POLYETHYLENE (MIRALAX) 17 GM PACK PO SCH ×3 (14:00→15:10)
[2016-10-23 15:09] VITALS: BP 85/57; PULSE 74; TEMP 36.8; O2SAT 98
[2016-10-23] MEDS ORDERED: BISACODYL 10 MG SUPP PR PRN (16:30)
[2016-10-23] MEDS ORDERED: MILK AND MOLASSES ENEMA PR PRN (18:30)
[2016-10-23 19:45] VITALS: BP 108/72; PULSE 79; TEMP 36.9; O2SAT 94
[2016-10-23 20:00] VITALS: O2SAT 94
--- NOTE | 2016-10-23 20:12 | Progress Note ---
Progress Note Date of Service October 23, 2016. 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
[2016-10-23] MEDS ORDERED: ACETAMINOPHEN/CODEINE 300/30MG TAB PO ONE (20:15)
--- NOTE | 2016-10-23 21:39 | Progress Note ---
Medicine Progress Note Date & Time of Visit: October 23, 2016 at 16:27. Subjective 46 yo F with persistent abdominal pain at home after ER visit on 10/18 revealing epiploic appendigitis. She was not improved on initial therapy. -still having pain and constiipation but tolerating reg diet -MOM given yest -continues on Miralax and prune juice -abdominal pain is improved. -reassess this afternoon after BM to see if nausea improves. Objective Last 8 Hrs Date Time Temp Pulse Resp B/P Pulse Ox O2 Delivery O2 Flow Rate FiO2 10/23/16 16:00 Room Air 10/23/16 15:09 36.8 74 16 85/57 98 Room Air Physical Exam: GEN: WNWD, in no acute distress, alert and appropriate HEENT: NC/AT, pupils are equal and round, normal sclerae, MMM CARDIO: reg rate, S1/2 heard without m/g/r LUNGS: CTA bilaterally, no crackles, rales or wheezes, good diaphragmatic excursion ABD: soft, non-tender, non-distended, no rebound or guarding, +BS EXTREMITY: no LE swelling or edema, extremities are warm and well-perfused NEURO: CN 2-12 grossly intact, sensation intact throughout MUSC: moves all extremities equally and with ease. SKIN: warm and dry Laboratory Results: 10/23/16 06:55 Red Blood Count 4.32, Mean Corpuscular Volume 92.8, Mean Corpuscular Hemoglobin 30.6, Mean Corpuscular Hemoglobin Concent 32.9, Mean Platelet Volume 9.4, Neutrophils (%) (Auto) 55.3, Lymphocytes (%) (Auto) 31.8, Monocytes (%) (Auto) 9.2, Eosinophils (%) (Auto) 2.8, Basophils (%) (Auto) 0.9, Neutrophils # (Auto) 3.01, Lymphocytes # (Auto) 1.73, Monocytes # (Auto) 0.50, Eosinophils # (Auto) 0.15, Basophils # (Auto) 0.05 10/23/16 06:55 Test 10/21/16 20:00 10/21/16 20:45 10/22/16 06:25 10/23/16 06:55 Activated Partial Thromboplast Time 24.9 SECONDS (21.0-31.0) Partial Thromboplastin Ratio 1.0 Total Bilirubin 0.3 mg/dl (0.2-1) Direct Bilirubin < 0.1 mg/dl (0-0.2) Aspartate Amino Transf (AST/SGOT) 19 U/L (15-37) Alanine Aminotransferase (ALT/SGPT) 23 U/L (12-78) Alkaline Phosphatase 117 U/L (45-117) C-Reactive Protein 0.33 mg/dl (0-0.29) Total Protein 7.2 gm/dl (6.4-8.2) Albumin 3.6 gm/dl (3.4-5.0) Lipase 110 U/L (73-393) Urine Color YELLOW Urine Appearance CLEAR (CLEAR) Urine pH >= 9.0 (4.5-7.5) Urine Specific [place] 1.016 (1.000-1.030) Urine Protein NEG (NEG) Urine Glucose (UA) NEG (NEG) Urine Ketones NEG (NEG) Urine Occult Blood NEG (NEG) Urine Nitrite NEG (NEG) Urine Bilirubin NEG (NEG) Urine Urobilinogen NEG (NEG) Urine Leukocyte Esterase NEG (NEG) Urine WBC (Auto) 1-5 /hpf (0-5) Urine RBC (Auto) 0-4 /hpf (0-4) Urine Hyaline Casts (Auto) 0 /lpf (0-5) Urine Epithelial Cells (Auto) 5-10 /lpf (0-5) Urine Bacteria (Auto) NEG (NEG) Prothrombin Time 10.2 SECONDS (9.0-12.0) Prothromb Time International Ratio 1.0 (0.9-1.1) White Blood Count 5.44 K/uL (4.8-10.8) Red Blood Count 4.32 M/uL (4.2-5.4) Hemoglobin 13.2 g/dL (12.0-16.0) Hematocrit 40.1 % (37-47) Mean Corpuscular Volume 92.8 fL (80-100) Mean Corpuscular Hemoglobin 30.6 pg (25-34) Mean Corpuscular Hemoglobin Concent 32.9 g/dl (32-36) Platelet Count 254 K/uL (130-400) Mean Platelet Volume 9.4 fL (7.4-10.4) Neutrophils (%) (Auto) 55.3 % Lymphocytes (%) (Auto) 31.8 % Monocytes (%) (Auto) 9.2 % Eosinophils (%) (Auto) 2.8 % Basophils (%) (Auto) 0.9 % Neutrophils # (Auto) 3.01 K/uL (1.4-6.5) Lymphocytes # (Auto) 1.73 K/uL (1.2-3.4) Monocytes # (Auto) 0.50 K/uL (0.11-0.59) Eosinophils # (Auto) 0.15 K/uL (0-0.5) Basophils # (Auto) 0.05 K/uL (0-0.2) RDW Standard Deviation 43.5 fL (36.4-46.3) RDW Coefficient of Variation 12.6 % (11.5-14.5) Immature Granulocyte % (Auto) 0.0 % Immature Granulocyte # (Auto) 0.00 K/uL (0.00-0.02) Anion Gap 5.0 mmol/L (3-11) Est Creatinine Clear Calc Drug Dose 93.8 ml/min Estimated GFR () 95.2 Estimated GFR (Non- 82.2 BUN/Creatinine Ratio 13.8 (10-20) Calcium Level 8.6 mg/dl (8.5-10.1) Magnesium Level 2.2 mg/dl (1.8-2.4) Troponin I < 0.015 ng/ml (0-0.045) Chemistry Specimen Hemolysis Last 24 Hours Test 10/23/16 06:55 White Blood Count 5.44 K/uL Red Blood Count 4.32 M/uL Hemoglobin 13.2 g/dL Hematocrit 40.1 % Mean Corpuscular Volume 92.8 fL Mean Corpuscular Hemoglobin 30.6 pg Mean Corpuscular Hemoglobin Concent 32.9 g/dl Platelet Count 254 K/uL Mean Platelet Volume 9.4 fL Neutrophils (%) (Auto) 55.3 % Lymphocytes (%) (Auto) 31.8 % Monocytes (%) (Auto) 9.2 % Eosinophils (%) (Auto) 2.8 % Basophils (%) (Auto) 0.9 % Neutrophils # (Auto) 3.01 K/uL Lymphocytes # (Auto) 1.73 K/uL Monocytes # (Auto) 0.50 K/uL Eosinophils # (Auto) 0.15 K/uL Basophils # (Auto) 0.05 K/uL RDW Standard Deviation 43.5 fL RDW Coefficient of Variation 12.6 % Immature Granulocyte % (Auto) 0.0 % Immature Granulocyte # (Auto) 0.00 K/uL Sodium Level 144 mmol/L Potassium Level 4.5 mmol/L Chloride Level 109 mmol/L Carbon Dioxide Level 30 mmol/L Anion Gap 5.0 mmol/L Blood Urea Nitrogen 12 mg/dl Creatinine 0.86 mg/dl Est Creatinine Clear Calc Drug Dose 93.8 ml/min Estimated GFR () 95.2 Estimated GFR (Non- 82.2 BUN/Creatinine Ratio 13.8 Random Glucose 99 mg/dl Calcium Level 8.6 mg/dl Magnesium Level 2.2 mg/dl Troponin I < 0.015 ng/ml Chemistry Specimen Hemolysis Assessment & Plan 46 yo F with persistent abdominal pain at home after ER visit on 10/18 revealing epiploic appendigitis. She was not improved on initial therapy. 1. Abdominal pain-persistent in RLQ. CT with evidence of resolving epiploic appendagitis. Pt is still requiring pain meds but reports doing better this morning. She is tolerating regular diet. she has been constipated now for 5-6 days. MOM enema given with little result. Will repeat this am. Cont Miralax. No peritoneal signs on exam. Cont Toradol and T3 for severe pain 2. Opioid-induced constipation-cont bowel regimen and minimize narcs. 3. Nausea 2/2 inflammatory process as above in conjunction with opioid-induced constipation. Improved and tolerating PO 4. Mood disorder-stable, at baseline, cont home regimen. 5. h/o migraines 6. Asthma-well controlled. No wheezing on exam. Cont Duonebs as needed. DVT proph-Lovenox. Full Code Dispo-cont to monitor on Med/Surg. OK to go home once she is tolerating PO and pain is well managed with PO meds or gone. Maylin Adams DO [facility] Hospitalist Current Inpatient Medications: Current Inpatient Medications Medications (Trade) Dose Ordered Sig/Bibi Route Start Time Stop Time Status Last Admin Dose Admin Enoxaparin Sodium (Lovenox Inj) 40 mg Q24H SC 10/22/16 09:00 11/21/16 08:59 10/23/16 07:31 40 MG Acetaminophen (Tylenol Tab) 650 mg Q4H PRN PO 10/22/16 00:00 11/21/16 00:00 10/22/16 23:15 650 MG Clonazepam (Klonopin Tab) 0.5 mg BID PRN PO 10/22/16 00:00 11/21/16 00:00 Venlafaxine HCl (effeXOR TAB) 75 mg DAILY PO 10/22/16 09:00 11/21/16 08:59 10/23/16 07:31 75 MG Albuterol/ Ipratropium (Duoneb) 3 ml Q2H PRN INH 10/22/16 00:00 11/21/16 00:00 Ondansetron HCl 4 mg 4 mg Q6H PRN IV 10/22/16 00:00 11/21/16 00:00 10/22/16 23:12 4 MG Promethazine HCl/ Sodium Chloride (Phenergan Inj/ Nss 50ml) 50.5 ml @ 204 mls/hr Q6H PRN IV 10/22/16 00:00 11/21/16 00:00 10/22/16 08:50 204 MLS/HR Senna/Docusate Sodium (Senokot S Tab) 1 tab QAM PO 10/22/16 09:00 11/21/16 08:59 10/23/16 07:31 1 TAB Ioversol (Optiray 320) 100 ml UD PRN IV 10/22/16 00:00 10/26/16 00:00 Morphine Sulfate (MoRPHine SULFATE INJ) 2 mg Q8H PRN IV 10/22/16 09:30 11/05/16 09:29 10/23/16 09:45 2 MG Miscellaneous (Iv Fluids Completed) 1 ea PRN PRN N/A 10/22/16 02:15 10/22/17 02:14 Ketorolac Tromethamine (Toradol Inj) 30 mg Q6 IV. 10/22/16 12:00 10/27/16 11:59 10/23/16 13:03 30 MG Acetaminophen/ Codeine Phosphate (Tylenol w/ Codeine #3 Tab) 1 tab Q6H PRN PO 10/23/16 10:45 11/22/16 10:44 Polyethylene (Miralax Powder Packet) 17 gm BID@1400 PO 10/23/16 14:00 11/22/16 13:59 10/23/16 15:10 17 GM
[2016-10-23 23:54] VITALS: BP 95/60; PULSE 73; TEMP 36.8; O2SAT 97
[2016-10-24] VITALS: O2SAT 94
[2016-10-24 03:53] VITALS: BP 92/56; PULSE 79; TEMP 36.7; O2SAT 93
[2016-10-24] MEDS: KETOROLAC TROMETHAMINE 30 MG/ML VIAL IV. SCH (06:16)
[2016-10-24 07:23] VITALS: BP 85/56; PULSE 71; TEMP 36.7; O2SAT 95
[2016-10-24 08:00] VITALS: O2SAT 94
--- NOTE | 2016-10-24 08:25 | Progress Note ---
Internal Med Progress Note Date of Service: October 24, 2016. Provider Documentation: SUBJECTIVE: Seen and examined at bedside. Patient had BM overnight and is passing gas. Rates abd pain as 0/10 this morning. Denies nausea, vomiting, chest pain, SOB. Offers no other complaints. Eager to get discharged OBJECTIVE: Vital Signs-as noted below Physical Exam: General Appearance:Moderately built and nourished, no apparent distress Head: normocephalic, Atraumatic Eyes: normal inspection, EOMI, PERRLA Neck: supple, Trachea midline Respiratory/Chest: Normal breath sounds, CTA Cardiovascular: S1, S2, No murmur Abdomen/GI:Soft, Non tender, Bowel sounds present Extremities/Musculoskelatal:normal inspection, no edema Neurologic/Psych:AAOX3, grossly no focal neurological deficits Skin: normal color, warm Lab data as noted below. ASSESSMENT & PLAN: 46 yo F with persistent abdominal pain was found to have epiploic appendagitis on CT abd. Abdominal pain: CT with evidence of resolving epiploic appendagitis Abd pain resolved Tolerating diet +BM Constipation resolved Avoid Opioids Continue Toradol and T3 PRN for pain Opioid-induced constipation: Resolved cont bowel regimen and minimize narcotics Chronic Hypotension: Patient states her BP usually runs low Denies any dizziness Mood disorder: stable continue home regimen h/o migraines: Stable Asthma: Stable Continue Duonebs PRN DVT Px: Lovenox CODE STATUS: Full Code DISPOSITION: Plan to discharge home today Follow up with on 10/26/16 at 11:15AM Continue low fiber diet for 1-2 weeks Seek immediate medical attention if your symptoms reoccur or worsen Vital Signs: Date Time Temp Pulse Resp B/P Pulse Ox O2 Delivery O2 Flow Rate FiO2 10/24/16 07:23 36.7 71 16 85/56 95 Room Air 10/24/16 03:53 36.7 79 18 92/56 93 Room Air 10/24/16 00:00 94 Room Air 10/24/16 00:00 94 Room Air 10/23/16 23:54 36.8 73 18 95/60 97 Room Air 10/23/16 20:00 94 Room Air 10/23/16 20:00 94 Room Air 10/23/16 19:45 36.9 79 18 108/72 94 Room Air 10/23/16 16:00 Room Air 10/23/16 15:09 36.8 74 16 85/57 98 Room Air
[2016-10-24] MEDS ORDERED: ACET-749 PO (08:31)
[2016-10-24] MEDS ORDERED: MRLP17 PO (08:31)
--- NOTE | 2016-10-24 08:35 | Discharge Summary ---
Discharge Summary Date of Service October 24, 2016. Discharge Summary Admission Date: October 23, 2016 at 18:23 Discharge Date: October 24, 2016 Discharge Disposition: Home with services Principal Diagnosis: Epiploic Appendagitis Procedures: CT ABD: 1. Persistent, but improved, minimal infiltration and fluid along the ascending colon since CT of October 18, 2016. This may reflect resolving epiploic appendagitis. No abscess. Normal appendix. No bowel obstruction. 2. Fatty liver. CTA:1. There is no evidence of pulmonary embolus in the main, lobar, or segmental pulmonary arteries. 2. The lungs are clear. Consultations: None Pending Studies/Follow-Up: Follow up with on 10/26/16 at 11:15AM Continue low fiber diet for 1-2 weeks Seek immediate medical attention if your symptoms reoccur or worsen Medication Reconciliation New Medications: Acetaminophen/Codeine (Tylenol W/Codeine #3) 300 Mg/30 Mg Tab 1 TAB PO Q8H PRN for Pain for 3 Days, #10 TAB Polyethylene (Miralax) 17 Gm Pow 17 GM PO BID@1400 PRN for constipation for 3 Days, #6 Continued Medications: Albuterol Hfa (Ventolin Hfa) 200 Puffs/74840 Mcg Aers 2 PUFFS INH QID, #1 INHALER Clonazepam (Clonazepam) 0.5 Mg Tab 0.5 MG PO BID PRN for Panic Attack Ondasetron Odt (Zofran Odt) 4 Mg Tab 4 MG SL Q6H for Nausea, #10 TAB Venlafaxine Hcl (Effexor) 100 Mg Tab 100 MG PO BID PRN for depression, TAB Discontinued Medications: Ciprofloxacin Hcl (Cipro) 500 Mg Tab 500 MG PO BID for 7 Days, #14 TAB Hydrocodone/Acetaminophen 5MG/325MG ([place] 5MG/325MG) Tab 1-2 TABLET PO Q4H PRN for Pain, #20 TAB For Initial Treatment Metronidazole (Flagyl) 500 Mg Tab 500 MG PO TID for 7 Days, #21 TAB Admission Information HPI (per Admitting provider): CHIEF COMPLAINT: Right-sided abdominal pain. HISTORY OF PRESENT ILLNESS: Hx obtained from px and records. Medical history is significant for asthma, migraine, mood disorder, hx presumptive PE during sp anticoagulation (2002). fibromyalgia as per records. Recent confinement last July 2013 for atypical chest pain, normal stress echo. Last 3 days, patient noted right-sided abdominal pain with some nausea, poor bowel movement; achy, different from kidney stones; some chills, no fever. Seen at the Emergency Room. CAT scan showed moderate colonic fecal retention, hepatomegaly, hepatic steatosis, right lower quadrant inflammation, epiploic appendagitis versus omental infarct , right colon diverticulitis less likely. Patient discharged on Cipro, Flagyl, and Vicodin. Worsening pain at home. Patient also had right-sided chest pain, could not catch her breath. No cough. Intractable pain at the Emergency Room. Physical Exam (per Admitting): PHYSICAL EXAMINATION: VITAL SIGNS: Blood pressure noted to be 101/72, pulse rate 90, RR 13, temp 37 sats 100% on room air. GENERAL: Noted to be anxious, obese, in no respiratory distress. SKIN: Normal color. HEENT: [place] palpebral conjunctivae. Dry mucosa. NECK: Short neck. CHEST: Decreased breath sounds. No anterior chest wall tenderness. HEART: Regular rate and rhythm. ABDOMEN: Right lower quadrant tenderness. EXTREMITIES: No edema or tenderness. NEUROLOGIC: No gross focality. Hospital Course 46 yo F with persistent abdominal pain was found to have epiploic appendagitis on CT abd. Abdominal pain: CT with evidence of resolving epiploic appendagitis Abd pain resolved Tolerating diet +BM Constipation resolved Avoid Opioids Continue Toradol and T3 PRN for pain Opioid-induced constipation: Resolved cont bowel regimen and minimize narcotics Chronic Hypotension: Patient states her BP usually runs low Denies any dizziness Mood disorder: stable continue home regimen h/o migraines: Stable Asthma: Stable Continue Duonebs PRN DVT Px: Lovenox CODE STATUS: Full Code DISPOSITION: Plan to discharge home today Follow up with on 10/26/16 at 11:15AM Continue low fiber diet for 1-2 weeks Seek immediate medical attention if your symptoms reoccur or worsen Total time spent on discharge = 34 minutes This includes examination of the patient, discharge planning, medication reconciliation, and communication with other providers. Discharge Instructions Discharge Instructions Date of Service October 24, 2016. Admission Reason for Admission: Chest Pain Discharge Discharge Diagnosis / Problem: Epiploic Appendagitis Discharge Goals Goal(s): Decrease discomfort, Improve function Activity Recommendations Activity Limitations: resume your previous activity Exercise/Sports Limitations: as tolerated . Instructions / Follow-Up Instructions / Follow-Up Follow up with on 10/26/16 at 11:15AM Continue low fiber diet for 1-2 weeks Seek immediate medical attention if your symptoms reoccur or worsen Current Hospital Diet Patient's current hospital diet: Low Fiber Diet Discharge Diet Recommended Diet: Low Fiber Diet Pending Studies Studies pending at discharge: no Work Instructions Return To Work: after follow-up (with Primary Care Physician on ) Medical Emergencies . Who to Call and When: Medical Emergencies: If at any time you feel your situation is an emergency, please call 911 immediately. . Non-Emergent Contact Non-Emergency issues call your: Primary Care Provider Call Non-Emergent contact if: you have a fever, your pain is not controlled, your pain is worsening, your pain is unusual for you, you have any medication questions . . "Provider Documentation" section prepared by Charlie Norris. . VTE Core Measure Inpt VTE Proph given/why not?: Enoxaparin (Lovenox)SQ
[2016-10-24] MEDS: DOCUSATE SODIUM/SENNA 50/8.6MG TAB PO SCH (08:38)
[2016-10-24] MEDS: VENLAFAXINE HCL 50 MG TAB PO SCH (08:38)
[2016-10-24] MEDS: ENOXAPARIN 40 MG/0.4 ML SYR SC SCH (08:39)
[2016-10-24 10:25] VITALS: BP 85/56; PULSE 71; TEMP 36.7; O2SAT 94
== END 2016-10-24 11:05 | disposition home or self-care (01) | DRG 395 ==
LOC: ENRESERVDT → ENRESERVTM → C.EDB 19:46 → C.2T 23:31 → EDBEDREQ 10-22 07:05 → C.MED 10-22 09:49 → OBSVTOIN 10-23 18:23
PROVIDERS: ADMIT Internal Medicine; ATTEND Internal Medicine
DX: K63.89 Other specified diseases of intestine (principal); R10.31 Right lower quadrant pain; K59.03 Drug induced constipation; T40.2X5A Adverse effect of other opioids, initial encounter; R07.9 Chest pain, unspecified; R06.02 Shortness of breath; R11.0 Nausea; F41.9 Anxiety disorder, unspecified; G89.29 Other chronic pain; M54.5 Low back pain; I10 Essential (primary) hypertension; F39 Unspecified mood [affective] disorder; G43.909 Migraine, unspecified, not intractable, without status migrainosus; J45.909 Unspecified asthma, uncomplicated; Z86.711 Personal history of pulmonary embolism; Z79.899 Other long term (current) drug therapy

== ENCOUNTER 2017-07-15 10:21 | Emergency (ER) | payer BC ==
[~2017-07-15] VITALS: Ht 172.7 cm; Wt 76.3 kg
[~2017-07-15 10:21] MED LIST changes: +ACET-749 PO; -CIPR-255 PO; -HYDR-5688 PO; -METR-163 PO; +MRLP17 PO; -ONDA4TAB10 SL
[2017-07-15 10:26] VITALS: TEMP 36.9; Ht 172.7 cm; Wt 76.3 kg
[2017-07-15] MEDS ORDERED: VENL25TA2 PO (10:58)
[2017-07-15] MEDS ORDERED: SODIUM CHLORIDE 0.9% 1000ML 1,000 ML IV STA (11:03)
[2017-07-15] MEDS ORDERED: ACETAMINOPHEN 500 MG TAB PO STA (11:03)
[2017-07-15] MEDS ORDERED: PROCHLORPERAZINE 5 MG/ML 2 ML VIAL IV STA (11:03)
[2017-07-15] MEDS ORDERED: KETOROLAC TROMETHAMINE 30 MG/ML VIAL IV STA (11:03)
[2017-07-15] MEDS ORDERED: DiphenhydrAMINE HCL 50 MG/ML VIAL IV STA (11:03)
--- NOTE | 2017-07-15 11:05 | EMERGENCY ROOM VISIT NOTE ---
History Report prepared by Fletcher: Cristian Bashir Under the Supervision of: Dr. Ronnie Munguia M.D. First contact with patient: 10:45 Chief Complaint: FLU LIKE SX Stated Complaint: MIGRAINE SYMPTOMS History of Present Illness The patient is a 47 year old white female with a past medical history of anxiety , depression, kidney stones, complete hysterectomy, ovarian cysts, and migraines who presents to the ED with a cc of flu-like symptoms beginning three days ago. Positive headache, dry cough, body aches, nausea, weakness, and visual blurring. Negative fevers, chest pain, shortness of breath, vomiting, abdominal pain, back pain, and diarrhea. 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 She has been taking Tylenol, Ibuprofen, and Mucinex over this time with some mild relief. She describes her headache, visual blurring, and nausea as a typical migraine. She denies any recent travels or antibiotic use. Source of History: patient Onset: three days ago Position: other (Global) Symptom Intensity: moderate Quality: other (Flu-like symptoms) Timing: constant Associated Symptoms: + headache, + cough, + nausea, + weakness, No fevers, No chest pain, No SOB, No vomiting, No abdominal pain, No back pain, No diarrhea Note: She is experiencing visual blurring and body aches. Review of Systems See HPI for pertinent positives and negatives. A total of ten systems were reviewed and were otherwise negative. Past Medical & Surgical Medical Problems: (1) Asthma (2) Chest pain (3) Epiploic appendagitis (4) Kidney stone (5) Migraine (6) Parathyroid tumor Surgical Problems: (1) H/O: hysterectomy Family History Kidney disease or stones Social History Smoking Status: Never Smoker Alcohol Use: none Drug Use: none Marital Status: Housing Status: lives with family Occupation Status: employed Current/Historical Medications Scheduled Albuterol Hfa (Ventolin Hfa), 2 PUFFS INH QID Scheduled PRN Clonazepam (Clonazepam), 0.5 MG PO BID PRN for Panic Attack Venlafaxine Hcl (Effexor), 1 CAP PO DAILY PRN for Depression Allergies Coded Allergies: Metoclopramide (Verified Adverse Reaction, Mild, PT BECOMES VERY NERVOUS, 07/15/17) Physical Exam Vital Signs Date Time Temp Pulse Resp B/P (MAP) Pulse Ox O2 Delivery O2 Flow Rate FiO2 07/15/17 15:42 96 16 98/57 96 07/15/17 14:21 98 16 95/59 95 Room Air 07/15/17 12:26 62 07/15/17 12:00 63 12 107/73 100 Room Air 07/15/17 10:26 36.9 91 18 103/73 97 Room Air Physical Exam GENERAL: Awake, alert, tired-appearing, NAD HENT: Normocephalic, atraumatic. EYES: Normal conjunctiva. Sclera non-icteric. NECK: Supple. No nuchal rigidity. FROM. No signs of meningismus. RESPIRATORY: CTAB, no rhonchi, wheezing, crackles CARDIAC: RRR, no MRG ABDOMEN: Soft, NTND, BS+ MSK: No chest wall TTP, no LE edema. No CVA TTP. NEURO: CN 2-12 intact, 5/5 upper and lower extremity strength, no dysmetria, no drift, good finger to nose, no sensory deficits. SKIN: No rash or jaundice noted. Medical Decision & Procedures ER Provider Diagnostic Interpretation: Radiology results as stated below per my review and radiologist interpretation: CHEST ONE VIEW PORTABLE CLINICAL HISTORY: Cough. Chest discomfort. COMPARISON STUDY: Chest CT October 22, 2016. FINDINGS: Lung volumes are normal. No pneumothorax or pleural effusion is noted. There is no consolidation to suggest pneumonia and there is no evidence for pulmonary edema. Cardiomediastinal silhouette is unremarkable. IMPRESSION: No acute cardiopulmonary findings. Electronically signed by: Salazar Parker M.D. 07/15/2017 2:20 PM Dictated Date/Time: 07/15/2017 2:19 PM Laboratory Results Test 07/15/17 11:25 07/15/17 11:30 Influenza Type A Antigen Neg for Influ A (NEG) Influenza Type B Antigen Neg for Influ B (NEG) Urine Color YELLOW Urine Appearance CLEAR (CLEAR) Urine pH 7.5 (4.5-7.5) Urine Specific [place] 1.012 (1.000-1.030) Urine Protein NEG (NEG) Urine Glucose (UA) NEG (NEG) Urine Ketones 1+ (NEG) Urine Occult Blood TRACE (NEG) Urine Nitrite NEG (NEG) Urine Bilirubin NEG (NEG) Urine Urobilinogen NEG (NEG) Urine Leukocyte Esterase NEG (NEG) Urine WBC (Auto) 1-5 /hpf (0-5) Urine RBC (Auto) 0-4 /hpf (0-4) Urine Hyaline Casts (Auto) 0 /lpf (0-5) Urine Epithelial Cells (Auto) 5-10 /lpf (0-5) Urine Bacteria (Auto) NEG (NEG) Laboratory results reviewed by me Medications Administered Medications (Trade) Dose Ordered Sig/Bibi Route Start Time Stop Time Status Last Admin Dose Admin Prochlorperazine Edisylate (Compazine Inj) 10 mg NOW STAT IV 07/15/17 11:03 07/15/17 11:04 DC 07/15/17 11:34 10 MG Sodium Chloride 1,000 ml @ 999 mls/hr Q1H1M STAT IV 07/15/17 11:03 07/15/17 12:03 DC 07/15/17 11:33 999 MLS/HR Ketorolac Tromethamine (Toradol Inj) 30 mg NOW STAT IV 07/15/17 11:03 07/15/17 11:04 DC 07/15/17 11:35 30 MG Acetaminophen (Tylenol Tab) 1,000 mg NOW STAT PO 07/15/17 11:03 07/15/17 11:04 DC 07/15/17 11:34 1,000 MG Diphenhydramine HCl (Benadryl Inj) 50 mg NOW STAT IV 07/15/17 11:03 07/15/17 11:04 DC 07/15/17 11:34 50 MG Hydroxyzine HCl (Vistaril Tab) 25 mg NOW STAT PO 07/15/17 12:09 07/15/17 12:10 DC 07/15/17 12:14 25 MG Albuterol/ Ipratropium (Duoneb) 3 ml ONE STAT INH 07/15/17 12:47 07/15/17 12:48 DC 07/15/17 12:54 3 ML Lorazepam (Ativan Tab) 0.5 mg NOW STAT PO 07/15/17 14:22 07/15/17 14:23 DC 07/15/17 14:41 0.5 MG ECG Indication: weakness Rate (beats per minute): 86 Rhythm: normal sinus Findings: other (Normal intervals, normal axis, T-wave inversion in leads III and aVF) Comparison ECG Date: 22 Oct 2016 Change: T-wave inversion in lead III in old, the one in aVF is new Patient's electrocardiogram interpreted by me. ED Course 1045: The patient was evaluated in room C3. A complete history and physical exam was performed. 1246: Upon reevaluation, the patient is feeling better. 1523: I reevaluated the patient. Discussed results and discharge instructions: She verbalized understanding and agreement. The patient is ready for discharge. Medical Decision The patient is a 47 year old white female with a past medical history of anxiety , depression, kidney stones, complete hysterectomy, ovarian cysts, and migraines who presents to the ED with a cc of flu-like symptoms beginning three days ago. Positive headache, dry cough, body aches, nausea, weakness, and visual blurring. Negative fevers, chest pain, shortness of breath, vomiting, abdominal pain, back pain, and diarrhea. Differential diagnosis: Etiologies such as viral syndrome, otitis, pharyngitis, pneumonia, influenza, meningitis, urinary tract infection, sepsis, bacteremia, as well as others were entertained. Patient was seen and evaluated the bedside. Patient was complaining some flulike symptoms. Patient also did complain of some mild headache. Patient has no focal neurologic deficits and no signs of meningismus. Patient had stable vital signs and no fever. Patient had a negative flu. Patient was feeling mildly improved. Urinalysis negative for infection. Urine test negative. Patient was given a DuoNeb and upon completion was feeling some improvement. Patient wasn't feeling much improved. Patient did have an EKG and a chest x-ray performed. Patient's chest x-ray negative. Patient's EKG did show prior T-wave inversion in the inferior leads. Patient's story is not concerning for ischemia and the patient has complained of some upper respiratory infectious type symptoms. I do not believe that she requires any blood work or further treatment at this time. Patient was able to ambulate without any change in her chest pain the patient has no exertional symptoms. Patient has no other risk factors. Patient less likely to be PE based on the patient's history and physical exam. Again, I believe this more infectious in nature. Patient was told to continue [id number] type treatment at home. Patient was told to return to work when she feels better. She was deemed suitable for outpatient follow-up and treatment at this time. Patient was given strict follow-up, discharge, and return precautions. All questions were answered. Patient was deemed suitable for outpatient follow-up at this time. Patient agreed with the plan of care and was safely discharged home. Medication Reconcilliation Current Medication List: was personally reviewed by me Blood Pressure Screening Patient's blood pressure: Normal blood pressure Blood pressure disposition: Did not require urgent referral Impression Primary Impression: Influenza-like symptoms Scribe Attestation The scribe's documentation has been prepared under my direction and personally reviewed by me in its entirety. I confirm that the note above accurately reflects all work, treatment, procedures, and medical decision making performed by me. Departure Information Dispostion Home / Self-Care Referrals Trinidad Key D.O. (PCP) Forms HOME CARE DOCUMENTATION FORM, IMPORTANT VISIT INFORMATION Patient Instructions ED Upper Resp Infec No Abx Tx, My [facility], Sore Throat - [facility], Sore Throats Self Care Additional Instructions Please return to the emergency department if you have worsening or recurrent symptoms not amenable to at-home treatment. Please call for a follow-up appointment with her primary care physician. Please take your medications as prescribed. If you have other concerns and/or complaints please feel free to also call your primary care physician's office or return the ED for further evaluation, management, and treatment. You may take 600 mg Ibuprofen every 6 hours as needed for pain with food for no more than 2 consecutive days. You may take tylenol 1000 mg every 6 hours as needed for pain. You may take motrin and tylenol separately or at the same time. You may continue to try expectorants like Mucinex or cough suppressants like Tessalon Perles and or Cepacol. Use the albuterol inhaler as needed. Take your medications as prescribed. You have been examined and treated today on an emergency basis only. This is not a substitute for, or an effort to provide, complete comprehensive medical care. It is impossible to recognize and treat all injuries or illnesses in a single emergency department visit. It is therefore important that you follow up closely with [facility], your PCP, and/or your specialist(s). Call as soon as possible for an appointment. Thank you for your time and consideration. I look forward to speaking with you again soon. Please don't hesitate to call us if you have any questions.
[2017-07-15] MEDS ORDERED: hydrOXYzine HCL 25 MG TAB PO STA (12:09)
[2017-07-15 12:32] LABS: INFLUENZA B ANTIGEN Neg for Influ B (NEG)
[2017-07-15] MEDS ORDERED: ALBUT/IPRATROP 3MG/0.5MG NEB 3 ML VIAL INH STA (12:47)
--- NOTE | 2017-07-15 14:21 | DIAGNOSTIC IMAGING REPORT ---
CHEST ONE VIEW PORTABLE CLINICAL HISTORY: Cough. Chest discomfort. COMPARISON STUDY: Chest CT October 22, 2016. FINDINGS: Lung volumes are normal. No pneumothorax or pleural effusion is noted. There is no consolidation to suggest pneumonia and there is no evidence for pulmonary edema. Cardiomediastinal silhouette is unremarkable. IMPRESSION: No acute cardiopulmonary findings. Electronically signed by: Salazar Parker M.D. 07/15/2017 2:20 PM Dictated Date/Time: 07/15/2017 2:19 PM
[2017-07-15] MEDS ORDERED: LORAZEPAM 0.5 MG TAB PO STA (14:22)
[2017-07-15 15:42] VITALS: BP 98/57; PULSE 96; O2SAT 96
== END 2017-07-15 15:35 | disposition home or self-care (01) ==
LOC: C.EDB 10:23 → C.EDC 15:35
DX: R51 Headache (principal); R05 Cough; R11.0 Nausea; R53.1 Weakness; H53.8 Other visual disturbances; J45.909 Unspecified asthma, uncomplicated; Z87.442 Personal history of urinary calculi; Z84.1 Family history of disorders of kidney and ureter; Z88.8 Allergy status to other drugs, medicaments and biological substances